=== PATIENT | female | born 1955 | race Asian ===

== ENCOUNTER 2024-09-11 11:32 | Inpatient (IN) | payer OTHER ==
[2024-09-11 12:38] VITALS: BMI 25.8
[2024-09-11] MEDS ORDERED: cloNIDine HCL 0.1 MG TABLET ONE (15:31)
[2024-09-11] MEDS: cloNIDine HCL 0.1 MG TABLET PO ONE (15:34)
[2024-09-11] MEDS ORDERED: BENZONATATE 200 MG CAPSULE PO PRN (16:36)
[2024-09-11] MEDS ORDERED: guaiFENesin 600 MG TABLET.ER (FP) PO PRN (16:36)
[2024-09-11] MEDS ORDERED: BENZOCAINE/MENTHOL (CHLORASEPTIC ) LOZENGE MM PRN (16:36)
[2024-09-11] MEDS ORDERED: ACETAMINOPHEN 325 MG TABLET (FP) PO PRN (16:36)
[2024-09-11] MEDS ORDERED: ONDANSETRON *ODT* 4 MG TABLET SL PRN (16:36)
[2024-09-11] MEDS ORDERED: NALOXONE (NARCAN) HCL 4 MG/0.1 ML SPRAY NS PRN (16:36)
[2024-09-11] MEDS ORDERED: IBUPROFEN 600 MG TABLET (FP) PO PRN (16:36)
[2024-09-11] MEDS ORDERED: POLYETHYLENE GLYCOL (HEALTHYLAX) 3350 17 GM PACKET PO PRN (16:36)
[2024-09-11] MEDS ORDERED: LOPERAMIDE HCL 2 MG CAPSULE PO PRN (16:36)
[2024-09-11] MEDS ORDERED: BISMUTH SUBSALICYLATE 524 MG/30 ML PO PRN (16:36)
[2024-09-11] MEDS ORDERED: MAGNESIUM HYDROX 2400MG/30ML ORAL SUSPENSION 30 ML CUP PO PRN (16:36)
[2024-09-11] MEDS ORDERED: DICYCLOMINE HCL 10 MG CAPSULE PO PRN (16:36)
[2024-09-11] MEDS ORDERED: NALOXONE (NYS OPIOID OVERDOSE PROGRAM) 4 MG/0.1 ML SPRAY NS PRN (16:36)
[2024-09-11] MEDS ORDERED: IBUPROFEN 400 MG TABLET (FP) PO PRN (16:36)
[2024-09-11] MEDS: hydrOXYzine PAMOATE 25 MG CAPSULE (FP) PO PRN (18:06)
[2024-09-11] MEDS: METHOCARBAMOL 500 MG TABLET PO PRN (18:06)
[2024-09-11] MEDS: MAG HYDROX/AL HYDROX/SIMETH 30 ML UNIT-DOSE CUP PO PRN (20:40)
[2024-09-11] MEDS: TRIAMCINOLONE ACET 0.1% CREAM 15 GM TUBE TP SCH (21:36)
[2024-09-11] MEDS: THIAMINE 100 MG TABLET PO SCH (21:37)
[2024-09-11] MEDS: MELATONIN 5 MG TABLETS PO SCH (21:37)
[2024-09-11] MEDS: CEPHALEXIN MONOHYDRATE 500 MG CAPSULE (UD) PO SCH (21:37)
[2024-09-11] MEDS ORDERED: DIMETHICONE TP SCH (22:00)
[2024-09-11] MEDS ORDERED: PATIENT'S OWN MEDICATION (NON-FORMULARY) (Betamethasone/Propylene Glyc [Betamethasone Dp A EP SCH (22:00)
[2024-09-11] MEDS ORDERED: [UNRECOGNIZED DRUG - OTHER] TP SCH (22:00)
[2024-09-11] MEDS ORDERED: MOMETASONE FUROATE TP SCH (22:00)
[2024-09-12] MEDS: PRENATAL VITAMINS W/ FOLIC ACID TABLET (FP) PO SCH (09:41)
[2024-09-12] MEDS: amLODIPine BESYLATE 5 MG TABLET (FP) PO SCH (09:41)
[2024-09-12] MEDS ORDERED: chlordiazePOXIDE HCL 25 MG CAPSULE PO PRN (10:00)
[2024-09-12] MEDS: chlordiazePOXIDE HCL 25 MG CAPSULE PO SCH (10:26)
[2024-09-12 14:13] LABS: HEMATOCRIT 35.8 % (32.4-45.2); HEMOGLOBIN 11.8 GM/dL (10.7-15.3); MCH 33.6 pg (25.7-33.7); MCHC 33.1 g/dl (32.0-36.0); MEAN CELL VOLUME 101.6 fl (80-96); MEAN PLT VOLUME 8.5 fl (7.5-11.1); PLATELET COUNT 357 10^3/uL (134-434); RBC 3.52 M/mm3 (3.60-5.2); RDW 14.7 % (11.6-15.6); WHITE BLOOD COUNT 9.4 K/mm3 (4.0-10.0)
[2024-09-12 14:33] LABS: CHLORIDE 107 mmol/L (98-107); POTASSIUM 4.5 mmol/L (3.5-5.1); SODIUM 139 mmol/L (136-145)
[2024-09-12 14:40] LABS: CALCIUM 9.2 mg/dL (8.5-10.1)
[2024-09-12 14:41] LABS: ALBUMIN 3.4 g/dl (3.4-5.0); ANION GAP 6 mmol/L (4-13); BLOOD UREA NITROGEN 17.7 mg/dL (7-18); CO2 25 mmol/L (21-32); GLUCOSE,RANDOM 145 mg/dL (74-106)
[2024-09-12 14:43] LABS: SGPT/ALT 30 U/L (13-61)
[2024-09-12 14:45] LABS: SGOT/AST 31 U/L (15-37); TOT PROT 7.8 g/dl (6.4-8.2)
[2024-09-12 14:46] LABS: ALK PHOS 86 U/L (45-117)
[2024-09-12 14:49] LABS: BILIRUBIN,TOTAL 0.4 mg/dL (0.2-1)
[2024-09-12] MEDS: cloNIDine HCL 0.1 MG TABLET PO ONE (22:37)
[2024-09-13] MEDS: NALTREXONE HCL 50 MG TABLET PO SCH (15:00)
[2024-09-14] MEDS: chlordiazePOXIDE HCL 25 MG CAPSULE PO SCH (05:41)
[2024-09-14] MEDS: LISINOPRIL 5 MG TABLET PO SCH (13:35)
[2024-09-15] MEDS ORDERED: chlordiazePOXIDE HCL 10 MG CAPSULE PO PRN
[2024-09-15] MEDS: chlordiazePOXIDE HCL 10 MG CAPSULE PO SCH (05:50)
[2024-09-15] MEDS ORDERED: ALBUTEROL SO4 HFA INHALER IH ONE (17:51)
[2024-09-16] MEDS: chlordiazePOXIDE HCL 10 MG CAPSULE PO SCH (05:41)
[2024-09-16 08:26] VITALS: TEMP 97.7
[2024-09-16 10:40] VITALS: BP 118/64; PULSE 78; RESP 18
[2024-09-17] MEDS ORDERED: chlordiazePOXIDE HCL 10 MG CAPSULE PO ONE (05:00)
== END 2024-09-16 12:13 | disposition home or self-care (01) | DRG 897 ==
LOC: YASAS 11:32 → Y6N 17:06
PROVIDERS: ADMIT Allergy & Immunology; ATTEND Surgery
PROC: HZ2ZZZZ Detoxification Services for Substance Abuse Treatment (ICD-10-PCS; principal; 2024-09-11)
DX: F10.230 Alcohol dependence with withdrawal, uncomplicated (principal); F10.282 Alcohol dependence with alcohol-induced sleep disorder; F32.A Depression, unspecified; I10 Essential (primary) hypertension; J45.20 Mild intermittent asthma, uncomplicated; K21.9 Gastro-esophageal reflux disease without esophagitis; L30.9 Dermatitis, unspecified; M19.041 Primary osteoarthritis, right hand; M19.042 Primary osteoarthritis, left hand; M54.50 Low back pain, unspecified; G89.29 Other chronic pain; R82.90 Unspecified abnormal findings in urine
CPT/HCPCS: 36415; 80053; 80305; 80307; 83036; 85027; 86780; 93005; 93010